=== PATIENT | male | born 1995 | race Caucasian/White ===

== ENCOUNTER 2019-06-10 15:53 | Emergency (ER) | payer OTHER ==
[2019-06-10 16:03] VITALS: RESP 18
[2019-06-10] MEDS ORDERED: DIPH,PERTUS(ACELL)TETVAC-LF 0.5 ML VIAL IM ONE (16:08)
[2019-06-10] MEDS ORDERED: HYDROmorphone 1 MG/ML 1 ML SYRINGE IVP STA (16:08)
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
[2019-06-10] MEDS ORDERED: ACET/COD 300 MG/30 MG STARTER PACK 6 TAB BTL PO STA (16:23)
[2019-06-10 17:27] VITALS: BP 127/80; PULSE 85; TEMP 98.9
== END 2019-06-10 17:25 | disposition home or self-care (01) ==
LOC: MERGE 15:53 → EC 15:53
DX: T22.212A Burn of second degree of left forearm, initial encounter (principal); T23.211A Burn of second degree of right thumb (nail), initial encounter; T23.262A Burn of second degree of back of left hand, initial encounter; T23.251A Burn of second degree of right palm, initial encounter; Z91.030 Bee allergy status; W40.1XXA Explosion of explosive gases, initial encounter; Y93.89 Activity, other specified; Y92.59 Other trade areas as the place of occurrence of the external cause; Y99.0 Civilian activity done for income or pay
CPT/HCPCS: 96374; 99284; J1170

== ENCOUNTER 2021-02-28 18:25 | Emergency (ER) | payer BC, OTHER ==
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
--- NOTE | 2021-02-28 19:30 | XR ---
EXAMINATION TYPE: XR knee complete LT DATE OF EXAM: 02/28/2021 COMPARISON: NONE HISTORY: Knee pain TECHNIQUE: 3 views FINDINGS: There is small knee joint effusion. There is nondisplaced vertical fracture through the lat eral tibial plateau. The distal femur is intact. Patella is intact. IMPRESSION: Nondisplaced lateral tibial plateau fracture.
--- NOTE | 2021-02-28 19:31 | XR ---
EXAMINATION TYPE: XR foot complete LT DATE OF EXAM: 02/28/2021 COMPARISON: None HISTORY: Foot pain TECHNIQUE: 3 views FINDINGS: Metatarsals are intact. I see no fracture nor dislocation. Joint spaces are normal. IMPRESSION: Negative left foot exam.
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
--- NOTE | 2021-02-28 20:32 | CT ---
EXAMINATION TYPE: CT knee LT wo con DATE OF EXAM: 02/28/2021 COMPARISON: None HISTORY: fall CT DLP: 150.2 mGycm Automated exposure control for dose reduction was used. Images obtained from the mid femur to the proximal tibia with no contrast. There is mild knee joint effusion. There is nondisplaced fracture of the posterior aspect of the late ral tibial plateau. Fracture line is in the coronal plane. There is no significant depression of the fragment. The distal femur is intact. Patella is intact. Fracture line best seen on the axial images. The tibial plateau fragment measures 26 x 12 mm. IMPRESSION: Nondisplaced chip fracture of the posterior aspect of the lateral tibial plateau.
[2021-02-28 20:40] VITALS: BP 125/80; PULSE 90; RESP 18; TEMP 98
== END 2021-02-28 20:50 | disposition home or self-care (01) ==
LOC: EC 18:25
DX: S82.145A Nondisplaced bicondylar fracture of left tibia, initial encounter for closed fracture (principal); V89.2XXA Person injured in unspecified motor-vehicle accident, traffic, initial encounter; Y92.410 Unspecified street and highway as the place of occurrence of the external cause
CPT/HCPCS: 73590; 73562; 73630; 73700; 99284; L1830